=== PATIENT | male | born 1965 | race Caucasian/White ===

== ENCOUNTER 2016-09-23 12:38 | Emergency (ER) | payer OTHER ==
[~2016-09-23] VITALS: Ht 190.5 cm; Wt 103.4 kg
[~2016-09-23 12:38] MED LIST: ALPR1TAB2 PO; ALPR1TAB6 PO; CIPR500T87 PO; DICY10CA53 PO; HYDR2TAB13 PO; HYDR4TAB16 PO; IBUP800T PO; METH12DI SQ; METO10TA82 PO; METR500T PO; OMEP-110 PO; ONDA4TAB13 SL; OXYC-223 PO; OXYC-302 PO; OXYC5CAP4 PO; OXYC5TAB3 PO; PANT40TA3 PO; SIME80TA16 PO; TRAM-28 PO; TRAM50TA2 PO; VITAMIN B 12 SC
[2016-09-23] MEDS ORDERED: ONDANSETRON 2MG/ML, 2ML IVPush ONE (13:30)
[2016-09-23] MEDS ORDERED: SODIUM CHLORIDE FLUSH 10ML SYR IVF ONE (13:30)
[2016-09-23] MEDS ORDERED: SODIUM CHLORIDE 0.9% 1,000ML IVBOLUS ONE (13:30)
[2016-09-23] MEDS ORDERED: ONDANSETRON 2MG/ML, 2ML ONE (13:41)
[2016-09-23] MEDS ORDERED: HYDROmorphone 1 MG/ML, 1ML ONE ×2 (13:41→14:59)
[2016-09-23] MEDS: HYDROmorphone 1 MG/ML, 1ML IVPush PRN ×2 (13:42→15:01)
[2016-09-23 16:58] VITALS: BP 124/75
== END 2016-09-23 17:04 | disposition home or self-care (01) ==
LOC: ED 14:16
DX: N43.3 Hydrocele, unspecified (principal); Z98.52 Vasectomy status
CPT/HCPCS: 36415; 76870; 81003; 85025; 96361; 96374; 96375; 96376; 99285; J1170; J2405; J7030

== ENCOUNTER 2016-09-30 00:13 | Emergency (ER) | payer OTHER ==
[~2016-09-30] VITALS: Ht 190.5 cm; Wt 103.6 kg
[2016-09-30] MEDS ORDERED: ONDANSETRON 2MG/ML, 2ML IVPush ONE (00:30)
[2016-09-30] MEDS ORDERED: HYDROmorphone 1 MG/ML, 1ML IVPush PRN ×2 (00:30→03:30)
[2016-09-30] MEDS ORDERED: SODIUM CHLORIDE FLUSH 10ML SYR IVF ONE (00:30)
[2016-09-30] MEDS ORDERED: HYDROmorphone 1 MG/ML, 1ML ONE ×2 (00:44→03:36)
[2016-09-30] MEDS ORDERED: ONDANSETRON 2MG/ML, 2ML ONE (00:44)
[2016-09-30 02:02] LABS: BLOOD UREA NITROGEN 19 mg/dL (7-18)
[2016-09-30] MEDS ORDERED: OMNIPAQUE 350 MG/ML, 100ML BOTTLE ONE (02:32)
[2016-09-30] MEDS ORDERED: CEFTRIAXONE PMX 1GM/50ML 50 ML IVPB ONE (03:30)
[2016-09-30] MEDS ORDERED: CEFTRIAXONE PMX 1GM/50ML 50 ML ONE (03:32)
[2016-09-30 04:00] VITALS: BP 154/86
== END 2016-09-30 04:06 | disposition home or self-care (01) ==
LOC: ED 00:58
DX: K62.89 Other specified diseases of anus and rectum (principal); K21.9 Gastro-esophageal reflux disease without esophagitis
CPT/HCPCS: 36415; 72193; 80048; 82040; 85025; 96365; 96375; 96376; 99285; J0696; J1170; J2405; Q9967